=== PATIENT | male | born 1935 | race Caucasian/White ===

== ENCOUNTER 2019-08-09 20:03 | Emergency (ER) | payer MEDICARE, BC ==
[2019-08-09 20:53] VITALS: BP 150/66
[2019-08-09 22:24] VITALS: PULSE 87; RESP 20; TEMP 97
[2019-08-09 22:49] LABS: Basophils % (A) 0 %; Eosinophils % (A) 0 %; HCT 39.5 % (39.0-53.0); HGB 12.9 gm/dL (13.0-17.5); Lymphocytes # (A) 1.6 k/uL (1.0-4.8); Lymphocytes % (A) 18 %; MCHC 32.6 g/dL (31.0-37.0); MCV 91.8 fL (80.0-100.0); Mean Platelet Volume 10.4; Monocytes # (A) 0.9 k/uL (0-1.0); Monocytes % (A) 10 %; Neutrophils # (A) 6.4 k/uL (1.3-7.7); Neutrophils % (A) 69 %; Platelet Count 285 k/uL (150-450); RDW 13.1 % (11.5-15.5); WBC 9.3 k/uL (3.8-10.6)
[2019-08-09 22:54] LABS: Albumin 4.5 g/dL (3.5-5.0); Calcium 9.2 mg/dL (8.4-10.2); Potassium 4.2 mmol/L (3.5-5.1); Total Bilirubin 0.4 mg/dL (0.2-1.3); Total Protein 7.4 g/dL (6.3-8.2)
[2019-08-09 23:06] LABS: Partial Thromboplastin Time 26.6 sec (22.0-30.0); Prothrombin Time 10.8 sec (9.0-12.0)
--- NOTE | 2019-08-09 23:48 | ED ---
Recheck HPI - General Chief Complaint: Recheck/Abnormal Lab/Rx Stated Complaint: Sent by Time Seen by Provider: 08/09/19 21:58 Source: patient Mode of arrival: ambulatory Limitations: no limitations - History of Present Illness Initial Comments: 83-year-old male patient presents to the emergency department sent by his primary care physician after having an abnormal outpatient MRI. Patient has been having neuro symptoms for the last couple of weeks which included speech difficulties and tingling to the bilateral hands. Patient states that he'll h ave episodes lasting up to an hour where his words do not make sense. His physician is thinking he may be having TIAs or seizures. States that he had 3 episodes today they're lasting up to an hour so they did call his physician who ordered an outpatient MRI. MRI report was reviewed and showed 2 small lesions which are concerning for metastatic brain tumors. Patient denies any headache, blurred vision, double vision, nausea, vomiting, dizziness, or weakness. Denies any difficulties with gait. Patient states he does occasionally have flashing lights in his vision but has been going on for quite some time. Patient has had prostate cancer remotely and more recently a tumor removed from his bladder on 07/18/2019. Patient denies any recent rash, fever, chills, shortness breath, chest pain, abdominal pain, diarrhea, constipation, back pain, hematuria, dysuria, urinary urgency, urinary frequency, or any other complaints. Review of Systems ROS Statement: Those systems with pertinent positive or pertinent negative responses have been documented in the HPI. ROS Other: All systems not noted in ROS Statement are negative. Past Medical History Past Medical History: Atrial Fibrillation, Cancer, Diabetes Mellitus, Hypertension Past Surgical History: Prostate Surgery Additional Past Surgical History / Comment(s): bladder CA, brain tumor Smoking Status: Never smoker Past Alcohol Use History: Occasional Past Drug Use History: None Reported General Exam Limitations: no limitations General appearance: alert, in no apparent distress, other (This is a well- developed, well-nourished adult male patient in no acute distress. Vital signs upon presentation are temperature 98.2F, pulse 75, respirations 18, blood pressure 150/66, pulse ox 97% on room air.) Eye exam: Present: normal appearance, PERRL, EOMI. Absent: scleral icterus, conjunctival injection, nystagmus, periorbital swelling ENT exam: Present: normal exam, normal oropharynx, mucous membranes moist Respiratory exam: Present: normal lung sounds bilaterally. Absent: respiratory distress, wheezes, rales, rhonchi, stridor Cardiovascular Exam: Present: regular rate, normal rhythm, normal heart sounds. Absent: systolic murmur, diastolic murmur, rubs, gallop, clicks GI/Abdominal exam: Present: soft, normal bowel sounds. Absent: distended, tenderness, guarding, rebound, rigid Neurological exam: Present: alert, oriented X3, CN II-XII intact, normal gait (WITH a cane), other (Strength in all 4 extremities is 5/5) Psychiatric exam: Present: normal affect, normal mood Skin exam: Present: warm, dry, intact, normal color. Absent: rash Course Vital Signs 08/09/19 08/09/19 20:47 22:20 Temperature 98.2 F 97 F L Pulse Rate 75 87 Respiratory 18 20 Rate Blood Pressure 150/66 O2 Sat by Pulse 97 97 Oximetry Medical Decision Making - Medical Decision Making 83-year-old male patient presented to the emergency department today for evaluation after having an abnormal outpatient MRI. Patient has been having abnormal neurologic symptoms for the last 2 weeks which included speech difficulty and tingling to the bilateral hands. MRI today showed 2 lesions on the brain concerning for metastatic disease versus possible ischemic change. Patient did recently have a tumor removed from his bladder and was scheduled to have an additional surgery on Thursday to remove the remainder of the tumor. Upon evaluation patient's physical exam is unremarkable. He is currently neurologically intact with no focal deficits. He is in no distress. Vital signs have been satisfactory. EKG showed A. fib with a ventricular rate of 80, patient does take Xarelto for known afib. I did discuss the case with Dr. Andrews at [facility] to accepts transfer for further evaluation by neurosurgery. - Lab Data Result diagrams: 08/09/19 22:30 08/09/19 22:30 Lab Results 08/09/19 08/09/19 08/09/19 Range/Units 22:30 22:30 22:30 WBC 9.3 (3.8-10.6) k/uL RBC 4.30 (4.30-5.90) m/uL Hgb 12.9 L (13.0-17.5) gm/dL Hct 39.5 (39.0-53.0) % MCV 91.8 (80.0-100.0) fL MCH 30.0 (25.0-35.0) pg MCHC 32.6 (31.0-37.0) g/dL RDW 13.1 (11.5-15.5) % Plt Count 285 (150-450) k/uL Neutrophils % 69 % Lymphocytes % 18 % Monocytes % 10 % Eosinophils % 0 % Basophils % 0 % Neutrophils # 6.4 (1.3-7.7) k/uL Lymphocytes # 1.6 (1.0-4.8) k/uL Monocytes # 0.9 (0-1.0) k/uL Eosinophils # 0.0 (0-0.7) k/uL Basophils # 0.0 (0-0.2) k/uL PT 10.8 (9.0-12.0) sec INR 1.0 (<1.2) APTT 26.6 (22.0-30.0) sec Sodium 134 L (137-145) mmol/L Potassium 4.2 (3.5-5.1) mmol/L Chloride 101 (98-107) mmol/L Carbon Dioxide 21 L (22-30) mmol/L Anion Gap 12 mmol/L BUN 22 H (9-20) mg/dL Creatinine 0.92 (0.66-1.25) mg/dL Est GFR (CKD-EPI)AfAm 89 (>60 ml/min/1.73 sqM) Est GFR (CKD-EPI)NonAf 77 (>60 ml/min/1.73 sqM) Glucose 174 H (74-99) mg/dL Calcium 9.2 (8.4-10.2) mg/dL Total Bilirubin 0.4 (0.2-1.3) mg/dL AST 28 (17-59) U/L ALT 19 (4-49) U/L Alkaline Phosphatase 41 (38-126) U/L Troponin I (0.000-0.034) ng/mL Total Protein 7.4 (6.3-8.2) g/dL Albumin 4.5 (3.5-5.0) g/dL 08/09/19 Range/Units 22:30 WBC (3.8-10.6) k/uL RBC (4.30-5.90) m/uL Hgb (13.0-17.5) gm/dL Hct (39.0-53.0) % MCV (80.0-100.0) fL MCH (25.0-35.0) pg MCHC (31.0-37.0) g/dL RDW (11.5-15.5) % Plt Count (150-450) k/uL Neutrophils % % Lymphocytes % % Monocytes % % Eosinophils % % Basophils % % Neutrophils # (1.3-7.7) k/uL Lymphocytes # (1.0-4.8) k/uL Monocytes # (0-1.0) k/uL Eosinophils # (0-0.7) k/uL Basophils # (0-0.2) k/uL PT (9.0-12.0) sec INR (<1.2) APTT (22.0-30.0) sec Sodium (137-145) mmol/L Potassium (3.5-5.1) mmol/L Chloride (98-107) mmol/L Carbon Dioxide (22-30) mmol/L Anion Gap mmol/L BUN (9-20) mg/dL Creatinine (0.66-1.25) mg/dL Est GFR (CKD-EPI)AfAm (>60 ml/min/1.73 sqM) Est GFR (CKD-EPI)NonAf (>60 ml/min/1.73 sqM) Glucose (74-99) mg/dL Calcium (8.4-10.2) mg/dL Total Bilirubin (0.2-1.3) mg/dL AST (17-59) U/L ALT (4-49) U/L Alkaline Phosphatase (38-126) U/L Troponin I <0.012 (0.000-0.034) ng/mL Total Protein (6.3-8.2) g/dL Albumin (3.5-5.0) g/dL - EKG Data -: EKG Interpreted by Me EKG Comments: EKG obtained at 2334 shows A. fib with ventricular rate of 80, QR shinto 118, QT 404, QTC 465. There is incomplete right bundle branch block. - Radiology Data Radiology results: report reviewed MR brain with and without contrast was obtained. Report reviewed in its entirety. Impression by Dr. Shogren shows appears to be a ring enhancing lesion within the left frontal parietal region as well as some enhancement along the left abdomen injury suspicious for metastatic disease. Focal white matter change in the left centrum semiovale posteriorly appears more likely related to ischemic change although very tiny nonenhancing metastasis could be considered. Chronic appearing white matter changes diffusely. Watershed infarct right occipital region. Carotid Doppler study done outpatient today as well showed no hemodynamically significant proximal ICA stenosis on either side. Elevated velocity within the distal right ICA felt to be secondary to turbulent flow from vessel tortuosity rather than from moderate stenosis. CTA can be considered to further evaluation as desired. Disposition Clinical Impression: Brain tumor, TIA (transient ischemic attack) Disposition: OTHER INSTITUTION NOT DEFINED Condition: Serious Referrals: Roscoe Dykes MD [Primary Care Provider] - 1-2 days - Out of Hospital Transfer - Req. Specs Out of Hospital Transfer - Requested Specifics: Other Emergency Center ([facility])
== END 2019-08-10 00:40 | disposition other institution (70) ==
LOC: EC 20:03
DX: G45.9 Transient cerebral ischemic attack, unspecified (principal); D49.6 Neoplasm of unspecified behavior of brain; I48.91 Unspecified atrial fibrillation; Z79.01 Long term (current) use of anticoagulants; Z85.46 Personal history of malignant neoplasm of prostate; Z98.890 Other specified postprocedural states; Z85.51 Personal history of malignant neoplasm of bladder
CPT/HCPCS: 36415; 80053; 84484; 85025; 85610; 85730; 93005; 99285

== ENCOUNTER → 2019-08-09 | Outpatient (CLI) | payer MEDICARE, BC ==
--- NOTE | 2019-08-09 15:54 | MR ---
EXAMINATION TYPE: MR brain wo/w con DATE OF EXAM: 08/09/2019 COMPARISON: None HISTORY: Stroke weakness CONTRAST: Performed utilizing 9 mL intravenous Gadavist gadolinium contrast. TECHNIQUE: Multiplanar, multiecho imaging on a 3.0 Tanya magnet is performed through the brain. Stud y is performed within 24 hours of arrival to the hospital. The craniovertebral junction is normal. The pituitary is normal. Diffusion-weighted imaging is performed. There is some mild cortical increased signal within the lef t frontal lobe. Greater hyperintensity is present extending into the white matter at the same level o n the FLAIR images. On postcontrast imaging there is a 0.7 x 1.0 cm ring-enhancing lesion as well as enhancement along the leptomeninges. Metastatic lesion is suspected. There is an additional punctate area of hyperintensity within the posterior left centrum semiovale wh ich is slightly smaller than the hyperintensity on the inversion recovery weighted sequence in this r egion. Series 305 image 176. Acute ischemic change at this level is present. No abnormal enhancement to suggest metastatic disease is identified. However, this is not entirely excluded at this level. There are multiple areas of increased white matter change scattered throughout the brain. There may b e an old watershed ischemic change in the right parietal-occipital region. Ventricles and sulci are prominent for the patient age. There is enhancement along the suspected ischemic area of the cortex which could be some luxury perfu selwyn. IMPRESSIONS: 1. There appears to be a ring-enhancing lesion within the left frontal parietal region as well as verónica e enhancement along the leptomeninges suspicious for metastatic disease. 2. Focal white matter change in the left centrum semiovale posteriorly appears more likely related to ischemic change although a very tiny nonenhancing metastasis could be considered. 3. Chronic appearing White matter changes diffusely. 4. Watershed infarct right occipital region A Yellow level critical message alert has been initiated for Roscoe Dykes MD via the [employer] Critical Results System on 08/09/2019 3:51 PM. This message alert has been sent to Roscoe Dykes MD via the preferences provided by the clinician for the receipt of Radiology Critical Findings. Message ID [id number].
== END | disposition home or self-care (01) ==
LOC: RADMRIMAIN 14:26
PROVIDERS: ATTEND Internal Medicine Geriatric Medicine
DX: G93.89 Other specified disorders of brain (principal); I63.89 Other cerebral infarction; R90.89 Other abnormal findings on diagnostic imaging of central nervous system
CPT/HCPCS: 70553; A9585

== ENCOUNTER → 2019-08-09 | Outpatient (CLI) | payer MEDICARE, BC ==
--- NOTE | 2019-08-09 15:42 | US ---
EXAMINATION TYPE: US carotid duplex BILAT DATE OF EXAM: 08/09/2019 COMPARISON: NONE CLINICAL HISTORY: 83-year-old male I63.9 STROKE. TECHNIQUE: Carotid duplex ultrasound examination. Indirect Doppler criteria was utilized. FINDINGS: EXAM MEASUREMENTS: RIGHT: Peak Systolic Velocity (PSV) cm/sec ----- Right CCA: 59.8 ----- Right ICA: 52.8 (distally 161.7 cm/s) ----- Right ECA: 110.8 ICA/CCA ratio: 0.9 RIGHT: End Diastole cm/sec ----- Right CCA: 11.9 ----- Right ICA: 15.4 (distally 50.2 cm/s) ----- Right ECA: 12.4 LEFT: Peak Systolic Velocity (PSV) cm/sec ----- Left CCA: 82.8 ----- Left ICA: 111.7 ----- Left ECA: 60.2 ICA/CCA ratio: 1.3 LEFT: End Diastole cm/sec ----- Left CCA: 10.1 ----- Left ICA: 39.1 ----- Left ECA: 0.0 VERTEBRALS (direction of flow): Right Vertebral: Antegrade Left Vertebral: Antegrade Rhythm: Arrhythmia Tool Chaser notes: No significant stenosis identified. Elevated distal ICA velocity on the right is f elt to reflect tortuosity. Mild bilateral plaque seen. IMPRESSION: 1. No hemodynamically significant proximal ICA stenosis on either side. 2. Elevated velocity within the distal right ICA felt to be secondary to turbulent flow from vessel t ortuosity rather than from a moderate stenosis. CTA can be considered if further evaluation is desire d. Criteria for Assigning % of Stenosis / Diameter reduction (Estimation based on the indirect measurements of the internal carotid artery velocities (ICA PSV). 1. Normal (no stenosis)=ICA PSV < 125 cm/s: ratio < 2.0: ICA EDV<40 cm/s. 2. Less than 50% stenosis=ICA PSV < 125 cm/s: ratio < 2.0: ICA EDV<40 cm/s. 3. 50 to 69% stenosis=ICA PSV of 125 to 230 cm/s: ration 2.0 ? 4.0: ICA EDV 40-100 cm/s. 4. Greater than 70% stenosis to near occlusion= ICA PSV > 230 cm/s: ratio > 4.0: ICA EDV > 100 cm/s. 5. Near occlusion= ICA PSV velocities may be low or undetectable: variable ratio and ICA EDV. 6. Total occlusion=unable to detect flow.
== END | disposition home or self-care (01) ==
LOC: RADUSWWP 13:56
PROVIDERS: ATTEND Internal Medicine Geriatric Medicine
DX: I65.23 Occlusion and stenosis of bilateral carotid arteries (principal)
CPT/HCPCS: 93880

== ENCOUNTER 2019-09-05 14:51 | Observation (INO) | payer MEDICARE, BC ==
[2019-09-05] MEDS ORDERED: NITROGLYCERIN OINT 1 INCH/GM PACKET TOPICAL STA (15:19)
[2019-09-05] MEDS ORDERED: ASPIRIN 81 MG PO STA (15:19)
--- NOTE | 2019-09-05 15:24 | ED ---
General Adult HPI - General Chief complaint: Chest Pain Stated complaint: chest pain Time Seen by Provider: 09/05/19 15:05 Source: patient, family, RN notes reviewed Mode of arrival: ambulatory Limitations: no limitations - History of Present Illness Initial comments: Patient is a pleasant 83-year-old male presenting to the emergency Department with complaints of chest discomfort. Onset of symptoms was a couple of days ago. Symptoms have been waxing and waning. Discomfort is currently 5/10. Discomfort feels like tightness and there is radiation to the back. Patient does have occasional mild dyspnea with exertion. No nausea or diaphoresis. No leg pain or leg swelling. No history of similar symptoms. Patient does have history of atrial fibrillation and is on Eliquis. Discomfort feels like pressure. - Related Data Home Medications Medication Instructions Recorded Confirmed Apixaban [Eliquis] 5 mg PO BID 09/05/19 09/05/19 Atorvastatin [Lipitor] 80 mg PO HS 09/05/19 09/05/19 Bicalutamide 50 mg PO HS 09/05/19 09/05/19 Cholecalciferol [Vitamin D3 (25 1,000 unit PO DAILY 09/05/19 09/05/19 Mcg = 1000 Iu)] Lisinopril [Prinivil] 5 mg PO DAILY 09/05/19 09/05/19 Vitamin B Complex 1 cap PO DAILY 09/05/19 09/05/19 metFORMIN HCL [Glucophage] 500 mg PO HS 09/05/19 09/05/19 Allergies Allergy/AdvReac Type Severity Reaction Status Date / Time No Known Allergies Allergy Verified 09/05/19 15:58 Review of Systems ROS Statement: Those systems with pertinent positive or pertinent negative responses have been documented in the HPI. ROS Other: All systems not noted in ROS Statement are negative. Constitutional: Denies: fever Eyes: Denies: eye pain ENT: Denies: ear pain Respiratory: Reports: as per HPI. Denies: cough Cardiovascular: Reports: chest pain Endocrine: Denies: fatigue Gastrointestinal: Denies: abdominal pain Genitourinary: Denies: dysuria Musculoskeletal: Denies: back pain Skin: Denies: rash Neurological: Denies: headache Past Medical History Past Medical History: Atrial Fibrillation, Cancer, Diabetes Mellitus, Hypertension Past Surgical History: Prostate Surgery Additional Past Surgical History / Comment(s): bladder CA, brain tumor Smoking Status: Never smoker Past Alcohol Use History: Occasional Past Drug Use History: None Reported General Exam Limitations: no limitations General appearance: alert, in no apparent distress Head exam: Present: normocephalic Eye exam: Present: normal appearance, PERRL ENT exam: Present: normal oropharynx Neck exam: Present: normal inspection Respiratory exam: Present: normal lung sounds bilaterally Cardiovascular Exam: Present: regular rate, irregular rhythm Expanded Peripheral pulses: 2+: Radial (R), Radial (L), Dorsalis Pedis (R), Dorsalis Pedis (L) GI/Abdominal exam: Present: soft. Absent: tenderness Extremities exam: Present: normal inspection. Absent: pedal edema, calf tenderness Back exam: Present: normal inspection. Absent: tenderness Neurological exam: Present: alert Psychiatric exam: Present: normal affect, normal mood Skin exam: Present: normal color Course Vital Signs 09/05/19 14:58 Temperature 98.0 F Pulse Rate 65 Respiratory 20 Rate Blood Pressure 135/74 O2 Sat by Pulse 93 L Oximetry EKG Findings - EKG Comments: EKG Findings:: A. fib with rate of 66. QRS 118. QT 424. QTC 444. Left axis. Normal QRS. Nonspecific T waves. Medical Decision Making - Medical Decision Making Patient reevaluated and resting comfortably at bedside. No significant discomfort at this time. Patient and family updated on results and plan. Patient states he did have recent heart catheterization, just over a month ago and coronary arteries were clean at that time. Case was discussed in detail with Dr. Dennis, who will admit covering for Dr. Dykes. Patient is currently on Eliquis - Lab Data Result diagrams: 09/05/19 15:30 09/05/19 15:30 Lab Results 09/05/19 09/05/19 09/05/19 Range/Units 15:30 15:30 15:30 WBC 8.0 (3.8-10.6) k/uL RBC 4.09 L (4.30-5.90) m/uL Hgb 12.5 L (13.0-17.5) gm/dL Hct 37.5 L (39.0-53.0) % MCV 91.8 (80.0-100.0) fL MCH 30.5 (25.0-35.0) pg MCHC 33.2 (31.0-37.0) g/dL RDW 13.1 (11.5-15.5) % Plt Count 255 (150-450) k/uL Neutrophils % 71 % Lymphocytes % 17 % Monocytes % 9 % Eosinophils % 1 % Basophils % 0 % Neutrophils # 5.7 (1.3-7.7) k/uL Lymphocytes # 1.3 (1.0-4.8) k/uL Monocytes # 0.7 (0-1.0) k/uL Eosinophils # 0.1 (0-0.7) k/uL Basophils # 0.0 (0-0.2) k/uL PT 11.4 (9.0-12.0) sec INR 1.1 (<1.2) APTT 28.2 (22.0-30.0) sec D-Dimer 0.53 (<0.60) mg/L FEU Sodium 135 L (137-145) mmol/L Potassium 4.2 (3.5-5.1) mmol/L Chloride 101 (98-107) mmol/L Carbon Dioxide 26 (22-30) mmol/L Anion Gap 8 mmol/L BUN 21 H (9-20) mg/dL Creatinine 1.12 (0.66-1.25) mg/dL Est GFR (CKD-EPI)AfAm 71 (>60 ml/min/1.73 sqM) Est GFR (CKD-EPI)NonAf 61 (>60 ml/min/1.73 sqM) Glucose 151 H (74-99) mg/dL Calcium 9.1 (8.4-10.2) mg/dL Magnesium 1.7 (1.6-2.3) mg/dL Total Bilirubin 0.4 (0.2-1.3) mg/dL AST 35 (17-59) U/L ALT 28 (4-49) U/L Alkaline Phosphatase 42 (38-126) U/L Creatine Kinase 83 (55-170) U/L CK-MB (CK-2) (0.0-2.4) ng/mL Troponin I (0.000-0.034) ng/mL NT-Pro-B Natriuret Pep pg/mL Total Protein 7.0 (6.3-8.2) g/dL Albumin 4.3 (3.5-5.0) g/dL 09/05/19 09/05/19 Range/Units 15:30 15:30 WBC (3.8-10.6) k/uL RBC (4.30-5.90) m/uL Hgb (13.0-17.5) gm/dL Hct (39.0-53.0) % MCV (80.0-100.0) fL MCH (25.0-35.0) pg MCHC (31.0-37.0) g/dL RDW (11.5-15.5) % Plt Count (150-450) k/uL Neutrophils % % Lymphocytes % % Monocytes % % Eosinophils % % Basophils % % Neutrophils # (1.3-7.7) k/uL Lymphocytes # (1.0-4.8) k/uL Monocytes # (0-1.0) k/uL Eosinophils # (0-0.7) k/uL Basophils # (0-0.2) k/uL PT (9.0-12.0) sec INR (<1.2) APTT (22.0-30.0) sec D-Dimer (<0.60) mg/L FEU Sodium (137-145) mmol/L Potassium (3.5-5.1) mmol/L Chloride (98-107) mmol/L Carbon Dioxide (22-30) mmol/L Anion Gap mmol/L BUN (9-20) mg/dL Creatinine (0.66-1.25) mg/dL Est GFR (CKD-EPI)AfAm (>60 ml/min/1.73 sqM) Est GFR (CKD-EPI)NonAf (>60 ml/min/1.73 sqM) Glucose (74-99) mg/dL Calcium (8.4-10.2) mg/dL Magnesium (1.6-2.3) mg/dL Total Bilirubin (0.2-1.3) mg/dL AST (17-59) U/L ALT (4-49) U/L Alkaline Phosphatase (38-126) U/L Creatine Kinase (55-170) U/L CK-MB (CK-2) 2.3 (0.0-2.4) ng/mL Troponin I 0.132 H* (0.000-0.034) ng/mL NT-Pro-B Natriuret Pep 1720 pg/mL Total Protein (6.3-8.2) g/dL Albumin (3.5-5.0) g/dL - Radiology Data Radiology results: image reviewed (Chest x-ray shows no acute process) Critical Care Time Critical Care Time: Yes Total Critical Care Time: 31 Disposition Clinical Impression: Chest pain Disposition: ADMITTED IP TO THIS HOSP Is patient prescribed a controlled substance at d/c from ED?: No Referrals: Roscoe Dykes MD [Primary Care Provider] - 1-2 days Decision Time: 16:42
[2019-09-05 15:41] LABS: Basophils % (A) 0 %; Eosinophils # (A) 0.1 k/uL (0-0.7); Eosinophils % (A) 1 %; HCT 37.5 % (39.0-53.0); HGB 12.5 gm/dL (13.0-17.5); Lymphocytes # (A) 1.3 k/uL (1.0-4.8); Lymphocytes % (A) 17 %; MCH 30.5 pg (25.0-35.0); MCHC 33.2 g/dL (31.0-37.0); MCV 91.8 fL (80.0-100.0); Mean Platelet Volume 9.9; Monocytes # (A) 0.7 k/uL (0-1.0); Monocytes % (A) 9 %; Neutrophils # (A) 5.7 k/uL (1.3-7.7); Neutrophils % (A) 71 %; Platelet Count 255 k/uL (150-450); RBC 4.09 m/uL (4.30-5.90); RDW 13.1 % (11.5-15.5)
--- NOTE | 2019-09-05 15:47 | XR ---
EXAMINATION TYPE: XR chest 2V DATE OF EXAM: 09/05/2019 COMPARISON: NONE HISTORY: Chest pain TECHNIQUE: Frontal and lateral views of the chest are obtained. FINDINGS: There is no focal air space opacity, pleural effusion, or pneumothorax seen. The cardiac silhouette size is within normal limits. The aorta is dense. Thoracic spondylosis is present. The os seous structures are intact. IMPRESSION: No acute cardiopulmonary process.
[2019-09-05 15:53] LABS: Albumin 4.3 g/dL (3.5-5.0)
[2019-09-05 15:54] LABS: Calcium 9.1 mg/dL (8.4-10.2); Magnesium 1.7 mg/dL (1.6-2.3); Potassium 4.2 mmol/L (3.5-5.1); Total Bilirubin 0.4 mg/dL (0.2-1.3)
[2019-09-05 15:58] LABS: D-Dimer 0.53 mg/L FEU (<0.60); INR 1.1 (<1.2); Partial Thromboplastin Time 28.2 sec (22.0-30.0); Prothrombin Time 11.4 sec (9.0-12.0)
[2019-09-05 16:12] LABS: Creatine Kinase MB 2.3 ng/mL (0.0-2.4)
[2019-09-05 16:24] LABS: Troponin I 0.132 ng/mL (0.000-0.034)
[2019-09-05] MEDS ORDERED: NITROGLYCERIN SL TABS 0.4 MG TAB SUBLINGUAL PRN (16:42)
[2019-09-05] MEDS: APIXABAN 5 MG TAB PO SCH (21:03)
[2019-09-05] MEDS: metFORMIN 500 MG TAB PO SCH (21:03)
[2019-09-05] MEDS: ATORVASTATIN 80 MG TAB PO SCH (21:03)
[2019-09-05] MEDS: BICALUTAMIDE 50 MG TAB PO SCH (21:04)
[2019-09-05] MEDS: NITROGLYCERIN OINT 1 INCH/GM PACKET TOPICAL SCH ×2 (21:04→23:30)
[2019-09-06 05:16] LABS: Cholesterol 117 mg/dL (<200); HDL Cholesterol 64 mg/dL (40-60); LDL Cholesterol,Calculated 44 mg/dL (0-99); Triglycerides 43 mg/dL (<150)
[2019-09-06 06:15] LABS: Glucose,Whole Blood 131 mg/dL (75-99)
[2019-09-06] MEDS: NITROGLYCERIN OINT 1 INCH/GM PACKET TOPICAL SCH (06:16)
--- NOTE | 2019-09-06 08:27 | P.CRDCN ---
History of Present Illness Consult date: 09/06/19 Requesting physician: James Richards Consult reason: chest pain Chief complaint: Chest pain History of present illness: This is a pleasant 83-year-old gentleman who follows regularly with Dr. Nona Voss in the office. He has a history of persistent atrial fibrillation, prostate cancer, bladder cancer, patient underwent tumor removal in the bladder in July of this year, diabetes, hypertension, hyperlipidemia, patient also had suspicion of a possible brain tumor on a presentation here to the emergency room recently, he was transferred from here to [facility], he had a full workup there according to the patient, also had a repeat MRI and was told by the physician there did not have any issues or tumors of the brain. Patient also states that he underwent a cardiac catheterization by Dr. Nona Voss in July at [facility] and was told his cardiac catheterization time was normal. He presents to the hospital on this occasion with symptoms of midsternal chest pressure that radiates through to his back, he states that he has had 2 other episodes prior to the one that brought him here to the hospital. The symptoms come and go according to him. He does get some mild associated shortness of breath with this, no nausea or diaphoresis. He called cardiology's office yesterday to explain his symptoms of chest discomfort and was advised to come to the emergency room for further evaluation and treatment. His chest x- ray on presentation here did not reveal any acute cardiopulmonary process. EKG shows atrial fibrillation with a controlled ventricular response, nonspecific ST-T wave changes noted in the anterior and lateral leads. Blood pressure on arrival here 134/74 with a heart rate in the 60s, 93% on room air. Temperature 90.8. White blood cell count 8.0, hemoglobin 12.5, platelet count 255. D-dimer 0.5. Sodium 135, potassium 4.2, BUN 21, creatinine 1.1. Troponin 0.13, 0.20, 0.15. Magnesium 1.7. BNP level 1720. At the time of my examination this morning, patient is comfortable, he denies any chest discomfort at present. Past Medical History Past Medical History: Atrial Fibrillation, Cancer, Diabetes Mellitus, Hypertension Additional Past Medical History / Comment(s): prostate cancer, bladder cancer, bladder tumor removed 07/2019 History of Any Multi-Drug Resistant Organisms: None Reported Past Surgical History: Prostate Surgery Additional Past Surgical History / Comment(s): bladder CA, brain tumor Past Anesthesia/Blood Transfusion Reactions: No Reported Reaction Past Psychological History: No Psychological Hx Reported Smoking Status: Never smoker Past Alcohol Use History: Occasional Past Drug Use History: None Reported - Past Family History Father Family Medical History: Unable to Obtain Mother Family Medical History: No Reported History Medications and Allergies Home Medications Medication Instructions Recorded Confirmed Type Apixaban [Eliquis] 5 mg PO BID 09/05/19 09/05/19 History Atorvastatin [Lipitor] 80 mg PO HS 09/05/19 09/05/19 History Bicalutamide 50 mg PO HS 09/05/19 09/05/19 History Cholecalciferol [Vitamin D3 (25 1,000 unit PO DAILY 09/05/19 09/05/19 History Mcg = 1000 Iu)] Lisinopril [Prinivil] 5 mg PO DAILY 09/05/19 09/05/19 History Vitamin B Complex 1 cap PO DAILY 09/05/19 09/05/19 History metFORMIN HCL [Glucophage] 500 mg PO HS 09/05/19 09/05/19 History Allergies Allergy/AdvReac Type Severity Reaction Status Date / Time No Known Allergies Allergy Verified 09/05/19 15:58 Physical Exam Vitals: Vital Signs Temp Pulse Pulse Resp BP BP Pulse Ox 09/06/19 04:00 97.9 F 61 16 117/61 97 09/05/19 23:49 98.3 F 75 16 146/70 99 09/05/19 22:08 98.1 F 65 16 129/76 98 09/05/19 19:18 98.2 F 72 18 139/79 98 09/05/19 17:13 98.4 F 63 17 129/90 98 09/05/19 14:58 98.0 F 65 20 135/74 93 L Intake and Output 09/05/19 09/06/19 09/06/19 22:59 06:59 14:59 Intake Total 150 Balance 150 Intake: Oral 150 Other: Voiding Method Toilet # Voids 1 3 Weight 88.904 kg 88.9 kg PHYSICAL EXAMINATION: GENERAL: 83-year-old gentleman in no acute distress at the time of my examination HEENT: Head is atraumatic, normocephalic. Pupils equal, round. Sclera anicteric. Conjunctiva are clear. Mucous membranes of the mouth are moist. Neck is supple. There is no elevated jugular venous pressure. No carotid bruit is heard. HEART EXAMINATION: S1 and S2 irregularly irregular CHEST EXAMINATION: Lungs are clear to auscultation and precussion. No chest wall tenderness is noted on palpation or with deep breathing. ABDOMEN: Soft, nontender. Bowel sounds are heard. No organomegaly noted. EXTREMITIES: 2+ peripheral pulses with no evidence of peripheral edema and no ca lf tenderness noted. NEUROLOGIC patient is awake, alert and oriented 3 . . Results 09/05/19 15:30 09/05/19 15:30 Cardiac Enzymes 09/05/19 09/05/19 09/05/19 Range/Units 15:30 15: 22:01 AST 35 (17-59) U/L CK-MB (CK-2) 2.3 (0.0-2.4) ng/mL Troponin I 0.132 H* 0.202 H* (0.000-0.034) ng/mL 09/06/19 Range/Units 04:42 AST (17-59) U/L CK-MB (CK-2) (0.0-2.4) ng/mL Troponin I 0.154 H* (0.000-0.034) ng/mL Coagulation 09/05/19 Range/Units 15:30 PT 11.4 (9.0-12.0) sec APTT 28.2 (22.0-30.0) sec Lipids 09/06/19 Range/Units 04:42 Triglycerides 43 (<150) mg/dL Cholesterol 117 (<200) mg/dL HDL Cholesterol 64 H (40-60) mg/dL CBC 09/05/19 Range/Units 15:30 WBC 8.0 (3.8-10.6) k/uL RBC 4.09 L (4.30-5.90) m/uL Hgb 12.5 L (13.0-17.5) gm/dL Hct 37.5 L (39.0-53.0) % Plt Count 255 (150-450) k/uL Comprehensive Metabolic Panel 09/05/19 Range/Units 15:30 Sodium 135 L (137-145) mmol/L Potassium 4.2 (3.5-5.1) mmol/L Chloride 101 (98-107) mmol/L Carbon Dioxide 26 (22-30) mmol/L BUN 21 H (9-20) mg/dL Creatinine 1.12 (0.66-1.25) mg/dL Glucose 151 H (74-99) mg/dL Calcium 9.1 (8.4-10.2) mg/dL AST 35 (17-59) U/L ALT 28 (4-49) U/L Alkaline Phosphatase 42 (38-126) U/L Total Protein 7.0 (6.3-8.2) g/dL Albumin 4.3 (3.5-5.0) g/dL Current Medications Generic Name Dose Route Start Last Admin Trade Name Freq PRN Reason Stop Dose Admin Apixaban 5 mg 09/05/19 21:00 09/05/19 21:03 Eliquis PO 5 mg BID [facility] Administration Aspirin 325 mg 09/06/19 09:00 Aspirin PO DAILY [facility] Atorvastatin Calcium 80 mg 09/05/19 21:00 09/05/19 21:03 Lipitor PO 80 mg HS [facility] Administration Bicalutamide 50 mg 09/05/19 21:00 09/05/19 21:04 Casodex PO 50 mg HS [facility] Administration Lisinopril 5 mg 09/06/19 09:00 Zestril PO DAILY [facility] Metformin HCl 500 mg 09/05/19 21:00 09/05/19 21:03 Glucophage PO 500 mg HS [facility] Administration Nitroglycerin 0.4 mg 09/05/19 16:42 Nitrostat SUBLINGUAL Q5M PRN Chest Pain Nitroglycerin 1 inch 09/05/19 21:00 09/06/19 06:16 Nitro-Bid Oint TOPICAL 1 inch Q6HR [facility] Administration Sodium Chloride 10 ml 09/05/19 21:00 09/05/19 21:08 Saline Flush IV 10 ml BID [facility] Administration Intake and Output 09/05/19 09/06/19 09/06/19 22:59 06:59 14:59 Intake Total 150 Balance 150 Intake: Oral 150 Other: Voiding Method Toilet # Voids 1 3 Weight 88.904 kg 88.9 kg 09/05/19 15:30 09/05/19 15:30 EKG Interpretations (text) EKG shows atrial fibrillation with ST-T wave changes noted in the anterior and lateral leads. Assessment and Plan Plan: Assessment and plan #1 symptoms of midsternal chest pressure with radiation to the back, associated shortness of breath, possible acute coronary syndrome. Troponin 0.13, 0.20, 0.14. EKG shows atrial fibrillation with ST-T changes noted in the anterior lateral leads. Patient does state that he underwent a cardiac catheterization in July of this year, which was reported to him to be normal. We will obtain a copy of that. D-dimer negative. #2 chronic persistent atrial fibrillation on Eliquis for anticoagulation, rate under adequate control #3 hypertension #4 hyperlipidemia #5 diabetes #6 bladder cancer with recent tumor removal #7 prostate cancer history #8 suspicion of possible tumor on the brain for which the patient was tra nsferred to [facility], according to the patient the repeat MRI and workup at [facility] was negative for tumor on the brain. Plan We will obtain an echocardiogram with Doppler study as well as a repeat EKG this morning. Obtain a cardiac catheterization report from [facility], and initiate low-dose beta rosas. Further recommendations to follow. DNP note has been reviewed, I agree with a documented findings and plan of care. Patient was seen and examined.
[2019-09-06] MEDS: LISINOPRIL 5 MG TAB PO SCH (08:43)
[2019-09-06] MEDS: APIXABAN 5 MG TAB PO SCH ×2 (08:43→20:49)
[2019-09-06] MEDS ORDERED: ASPIRIN 325 MG TAB PO SCH (09:00)
--- NOTE | 2019-09-06 09:37 | ECHOF ---
Referral Reason:cp MEASUREMENTS -------- HEIGHT: 182.9 cm WEIGHT: 88.5 kg BP: RVIDd: 3.1 cm (< 3.3) IVSd: 1.4 cm (0.6 - 1.1) LVIDd: 4.6 cm (3.9 - 5.3) LVPWd: 1.6 cm (0.6 - 1.1) IVSs: 1.6 cm LVIDs: 3.8 cm LVPWs: 1.7 cm LA Diam: 4.3 cm (2.7 - 3.8) LAESV Index (A-L): 26.67 ml/m Ao Diam: 4.1 cm (2.0 - 3.7) AV Cusp: 2.0 cm (1.5 - 2.6) MV EXCURSION: 19.436 mm (> 18.000) MV EF SLOPE: 146 mm/s (70 - 150) EPSS: 0.5 cm MV E Ayden: 0.73 m/s MV DecT: 189 ms MV A Ayden: 0.19 m/s MV E/A Ratio: 3.93 RAP: 5.00 mmHg RVSP: 20.64 mmHg FINDINGS -------- Atrial fibrillation. This was a technically adequate study. The left ventricular size is normal. Overall left ventricular systolic function is low-normal with, an EF between 50 - 55 %. The right ventricle is normal in size. The left atrium is mildly dilated. LA is midly dilated 29-33ml/m2. The right atrial size is normal. There is mild aortic valve sclerosis. Trace to mild aortic regurgitation. Mild mitral annular calcification present. Mild mitral regurgitation is present. Mild tricuspid regurgitation present. Right ventricular systolic pressure is normal at < 35 mmHg. There is no evidence of pulmonary hypertension. Trace/mild (physiologic) pulmonic regurgitation. The aortic root size is normal. There is no pericardial effusion. CONCLUSIONS -------- 1. Atrial fibrillation. 2. This was a technically adequate study. 3. The left ventricular size is normal. 4. Overall left ventricular systolic function is low-normal with, an EF between 50 - 55 %. 5. The right ventricle is normal in size. 6. The left atrium is mildly dilated. 7. LA is midly dilated 29-33ml/m2. 8. The right atrial size is normal. 9. There is mild aortic valve sclerosis. 10. Trace to mild aortic regurgitation. 11. Mild mitral annular calcification present. 12. Mild mitral regurgitation is present. 13. Mild tricuspid regurgitation present. 14. Right ventricular systolic pressure is normal at < 35 mmHg. 15. There is no evidence of pulmonary hypertension. 16. Trace/mild (physiologic) pulmonic regurgitation. 17. The aortic root size is normal. 18. There is no pericardial effusion. IN STORE MARKETER: Anjelica Lane RDCS
[2019-09-06] MEDS: ISOSORBIDE MONONITRATE ER 30 MG TAB.ER.24H PO SCH (11:19)
[2019-09-06] MEDS: CLOPIDOGREL 75 MG TAB PO SCH (11:19)
[2019-09-06 12:02] LABS: Glucose,Whole Blood 116 mg/dL (75-99)
[2019-09-06] MEDS: INSULIN ASPART (NovoLOG) 100 UNIT/ML VIAL SQ SCH ×3 (12:13→20:36)
--- NOTE | 2019-09-06 14:05 | P.HPIM ---
History of Present Illness H&P Date: 09/06/19 Chief Complaint: Chest pain This is an 83-year-old male patient of Dr. Dykes and Dr. HEATH Voss with past medical history of persistent atrial fibrillation on eliquis, prostate cancer, bladder cancer, patient underwent tumor removal in the bladder in July of this year, diabetes mellitus type II, hypertension, hyperlipidemia, patient also had suspicion of a possible brain tumor. Patient complains of chest pain in the middle of his chest up into his back that was a pressure type pain. He denies any radiation to his arm or neck. He denies any dizziness. Th is started about he was watching TV. He denies cough, shortness of breath. He denies any abdominal pain, no gastric reflux. He denies any weakness or speech difficulties. He denies any lower extremity edema. He does state that he has been constipated lately. Patient had a recent hospitalization [facility] at [facility] which time he presented with chest pain, status post heart catheterization which apparently was negative for coronary artery disease. Patient came into [facility] emergency center for evaluation. Blood pressure 134/74, heart rate in the 60s, pulse ox 93% on room air, afebrile. WBC 8, hemoglobin 12.5, platelet count 255. D-dimer 0.5, sodium 135, potassium 4.2, BUN 21, creatinine 1.1. Troponin 0.13, 0.20, 0.15. Magnesium 1.7. BNP level 1720. Chest x-ray showed no acute cardio pulmonary findings. Patient was placed on the cardiac stepdown unit and consult with cardiology requested. Echocardiogram has been ordered. Review of Systems Constitutional: Denies anorexia, Denies chills, Denies fatigue, Denies fever, Denies lethargy, Denies malaise, Denies poor appetite, Denies weakness Eyes: denies blurred vision, denies pain Ears, nose, mouth and throat: Denies dental pain, Denies headache, Denies nasal congestion, Denies nasal discharge, Denies sore throat, Denies vertigo Cardiovascular: Reports chest pain, Denies decreased exercise tolerance, Denies dyspnea on exertion, Denies leg edema, Denies lightheadedness, Denies shortness of breath, Denies syncope Respiratory: Denies congestion, Denies cough, Denies cough with sputum, Denies dyspnea, Denies excessive sputum, Denies home oxygen, Denies respiratory infections, Denies sleep apnea, Denies wheezing Gastrointestinal: Reports constipation, Denies abdominal pain, Denies diarrhea, Denies loss of appetite, Denies nausea, Denies vomiting Genitourinary: Denies dysuria, Denies urinary frequency, Denies urinary retention Musculoskeletal: Denies muscle weakness, Denies myalgias Integumentary: Denies pruritus, Denies rash, Denies wounds Neurological: Denies change in mentation, Denies change in speech, Denies numbness, Denies weakness Psychiatric: Denies anxiety, Denies depression Endocrine: Denies fatigue, Denies weight change Past Medical History Past Medical History: Atrial Fibrillation, Cancer, Diabetes Mellitus, Hypertension Additional Past Medical History / Comment(s): prostate cancer, bladder cancer, bladder tumor removed 07/2019 History of Any Multi-Drug Resistant Organisms: None Reported Past Surgical History: Prostate Surgery Additional Past Surgical History / Comment(s): bladder CA, brain tumor Past Anesthesia/Blood Transfusion Reactions: No Reported Reaction Past Psychological History: No Psychological Hx Reported Smoking Status: Never smoker Past Alcohol Use History: Occasional Past Drug Use History: None Reported - Past Family History Father Family Medical History: Unable to Obtain Additional Family Medical History / Comment(s): Father at age 93 from old age. Mother Family Medical History: Diabetes Mellitus Sister(s) Additional Family Medical History / Comment(s): Patient has one sister that is living with no major medical problems. Medications and Allergies Home Medications Medication Instructions Recorded Confirmed Type Apixaban [Eliquis] 5 mg PO BID 09/05/19 09/05/19 History Atorvastatin [Lipitor] 80 mg PO HS 09/05/19 09/05/19 History Bicalutamide 50 mg PO HS 09/05/19 09/05/19 History Cholecalciferol [Vitamin D3 (25 1,000 unit PO DAILY 09/05/19 09/05/19 History Mcg = 1000 Iu)] Lisinopril [Prinivil] 5 mg PO DAILY 09/05/19 09/05/19 History Vitamin B Complex 1 cap PO DAILY 09/05/19 09/05/19 History metFORMIN HCL [Glucophage] 500 mg PO HS 09/05/19 09/05/19 History Clopidogrel [Plavix] 75 mg PO DAILY #30 tab 09/07/19 Rx Famotidine [Pepcid] 20 mg PO DAILY tab 09/07/19 Rx Isosorbide Mononitrate ER [Imdur] 30 mg PO DAILY #30 tab.er.24h 09/07/19 Rx Nitroglycerin Sl Tabs [Nitrostat] 0.4 mg SUBLINGUAL Q5M PRN #25 tab 09/07/19 Rx Sennosides-Docusate Sodium 2 each PO DAILY tab 09/07/19 Rx [Senokot-S] Allergies Allergy/AdvReac Type Severity Reaction Status Date / Time No Known Allergies Allergy Verified 09/05/19 15:58 Physical Exam Vitals: Vital Signs Temp Pulse Pulse Resp BP BP Pulse Ox 09/06/19 04:00 97.9 F 61 16 117/61 97 09/05/19 23:49 98.3 F 75 16 146/70 99 09/05/19 22:08 98.1 F 65 16 129/76 98 09/05/19 19:18 98.2 F 72 18 139/79 98 09/05/19 17:13 98.4 F 63 17 129/90 98 09/05/19 14:58 98.0 F 65 20 135/74 93 L Intake and Output 09/05/19 09/06/19 09/06/19 22:59 06:59 14:59 Intake Total 150 Balance 150 Intake: Oral 150 Other: Voiding Method Toilet # Voids 1 3 Weight 88.904 kg 88.9 kg Gen: This is an 83-year-old male. Patient is in bed and appears to be comfortable and in no acute distress. HEENT: Head is atraumatic, normocephalic. Pupils equal, round. Sclerae is anicteric. NECK: Supple. No JVD. No lymphadenopathy. No thyromegaly. LUNGS: Clear to auscultation. No wheezes or rhonchi. No intercostal retractions. HEART: Irregular rate and rhythm. No murmur. ABDOMEN: Soft. Bowel sounds are present. No masses. No tenderness. EXTREMITIES: No pedal edema. No calf tenderness. Dorsalis pedis +2 bilaterally. NEUROLOGICAL: Patient is awake, alert and oriented x3. Cranial nerves 2 through 12 are grossly intact. Results CBC & Chem 7: 09/05/19 15:30 09/05/19 15:30 Labs: Abnormal Lab Results - Last 24 Hours (Table) 09/05/19 09/05/19 09/05/19 Range/Units 15:30 15:30 15:30 RBC 4.09 L (4.30-5.90) m/uL Hgb 12.5 L (13.0-17.5) gm/dL Hct 37.5 L (39.0-53.0) % Sodium 135 L (137-145) mmol/L BUN 21 H (9-20) mg/dL Glucose 151 H (74-99) mg/dL POC Glucose (mg/dL) (75-99) mg/dL Troponin I 0.132 H* (0.000-0.034) ng/mL HDL Cholesterol (40-60) mg/dL 09/05/19 09/06/19 09/06/19 Range/Units 22:01 04:42 04:42 RBC (4.30-5.90) m/uL Hgb (13.0-17.5) gm/dL Hct (39.0-53.0) % Sodium (137-145) mmol/L BUN (9-20) mg/dL Glucose (74-99) mg/dL POC Glucose (mg/dL) (75-99) mg/dL Troponin I 0.202 H* 0.154 H* (0.000-0.034) ng/mL HDL Cholesterol 64 H (40-60) mg/dL 09/06/19 Range/Units 06:14 RBC (4.30-5.90) m/uL Hgb (13.0-17.5) gm/dL Hct (39.0-53.0) % Sodium (137-145) mmol/L BUN (9-20) mg/dL Glucose (74-99) mg/dL POC Glucose (mg/dL) 131 H (75-99) mg/dL Troponin I (0.000-0.034) ng/mL HDL Cholesterol (40-60) mg/dL Thrombosis Risk Factor Assmnt - DVT/VTE Prophylaxis DVT/VTE Prophylaxis: Pharmacologic Prophylaxis ordered - Choose All That Apply Any of the Below Risk Factors Present?: Yes Each Factor Represents 1 point: Obesity (BMI >25) Each Risk Factor Represents 3 Points: Age 75 years or older Thrombosis Risk Factor Assessment Total Risk Factor Score: 4 Thrombosis Risk Factor Assessment Level: Moderate Risk Assessment and Plan Plan: 1. Chest pain. Cardiology consult. Continue Lipitor 80 mg daily, Plavix 75 mg daily, Imdur 30 mg daily, lisinopril 5 mg daily. Echocardiogram ordered. 2. Chronic persistent atrial fibrillation. Continue eliquis. 3. Hypertension. Continue lisinopril 5 mg daily. 4. Hyperlipidemia. Continue Lipitor. 5. Diabetes mellitus type 2. Hold metformin if patient needs heart catheterization. Continue NovoLog scale before meals and at bedtime. 6. Bladder cancer with recent tumor resection in July 2019. 7. History of prostate cancer. 8. Suspicious brain tumor, worked up at [facility]. 9. DVT prophylaxis. Eliquis. 10. GI prophylaxis. Pepcid. Patient placed as an observation status. Discharge plan: Return home Impression and plan of care have been directed as dictated by the signing physician. Marjorie Kraus nurse practitioner acting as scribe for signing physician.
[2019-09-06 17:08] LABS: Glucose,Whole Blood 169 mg/dL (75-99)
[2019-09-06 20:33] LABS: Glucose,Whole Blood 113 mg/dL (75-99)
[2019-09-06] MEDS: BICALUTAMIDE 50 MG TAB PO SCH (20:49)
[2019-09-06] MEDS: metFORMIN 500 MG TAB PO SCH (20:49)
[2019-09-06] MEDS: ATORVASTATIN 80 MG TAB PO SCH (20:49)
[2019-09-07 05:48] LABS: Glucose,Whole Blood 122 mg/dL (75-99)
[2019-09-07] MEDS: INSULIN ASPART (NovoLOG) 100 UNIT/ML VIAL SQ SCH ×2 (06:00→12:26)
[2019-09-07 08:04] VITALS: RESP 16; TEMP 97.7
[2019-09-07] MEDS ORDERED: FAMOTIDINE 20 MG TAB PO SCH (09:00)
[2019-09-07] MEDS ORDERED: ASPIRIN 81 MG PO SCH (09:00)
[2019-09-07] MEDS: APIXABAN 5 MG TAB PO SCH (09:19)
[2019-09-07] MEDS: CLOPIDOGREL 75 MG TAB PO SCH (09:19)
[2019-09-07] MEDS: ISOSORBIDE MONONITRATE ER 30 MG TAB.ER.24H PO SCH (09:19)
[2019-09-07] MEDS: LISINOPRIL 5 MG TAB PO SCH (09:19)
[2019-09-07 11:27] VITALS: BP 127/75; PULSE 75
[2019-09-07] MEDS ORDERED: SENNOSIDES-DOCUSATE SODIUM 1 EACH TAB PO SCH (11:30)
[2019-09-07 11:56] LABS: Glucose,Whole Blood 153 mg/dL (75-99)
[2019-09-07 14:15] LABS: Hemoglobin A1C 7.1 % (4.0-6.0)
--- NOTE | 2019-09-07 14:23 | CONS ---
CONSULTATION This patient was admitted with the symptoms suggestive of angina. Patient recently underwent cardiac catheterization. No significant coronary artery disease was detected. In view of that, the maximum medical therapy is recommended. Patient is feeling well. He is not having any symptoms of angina. He has been ambulatory in the hallway. Patient is started on Imdur 30 mg daily as well as Ranexa 500 mg b.i.d. and patient will be discharged home. Patient is started on Imdur 30 mg daily, nitroglycerin p.r.n., and patient will follow up as an outpatient. MMODL / IJN: [id number] /
--- NOTE | 2019-09-07 15:00 | P.DS ---
Providers Date of admission: 09/05/19 16:42 Expected date of discharge: 09/07/19 Attending physician: James Richards MD Consults: 09/05/19 16:42 Consult Physician Urgent Consulting Provider: Jessica Voss Consult Reason/Comments: cp Do you want consulting provider notified?: Yes Primary care physician: [facility] Course: This is an 83-year-old male patient of Dr. Dykes and Dr. HEATH Voss with past medical history of persistent atrial fibrillation on eliquis, prostate cancer, bladder cancer, patient underwent tumor removal in the bladder in July of this year, diabetes mellitus type II, hypertension, hyperlipidemia, patient also had suspicion of a possible brain tumor. Patient complains of chest pain in the middle of his chest up into his back that was a pressure type pain. He denies any radiation to his arm or neck. He denies any dizziness. This started about he was watching TV. He denies cough, shortness of breath. He denies any abdominal pain, no gastric reflux. He denies any weakness or speech difficulties. He denies any lower extremity edema. He does state that he has been constipated lately. Patient had a recent hospitalization [facility] at [facility] which time he presented with chest pain, status post heart catheterization which apparently was negative for coronary artery disease. Patient came into [facility] emergency center for evaluation. Blood pressure 134/74, heart rate in the 60s, pulse ox 93% on room air, afebrile. WBC 8, hemoglobin 12.5, platelet count 255. D-dimer 0.5, sodium 135, potassium 4.2, BUN 21, creatinine 1.1. Troponin 0.154, 0.202, 0.15. Magnesium 1.7. BNP level 1720. Chest x-ray showed no acute cardio pulmonary findings. Patient was placed on the cardiac stepdown unit and consult with cardiology requested. Echocardiogram has been ordered. 09/06: Patient denies any complaints today. He denies any chest pain. He has been afebrile, heart rate 78, blood pressure 125/71, pulse ox 98% on room air. Hemoglobin A1c 7.1. Triglycerides 43, cholesterol 117, LDL 44, HDL 64. Echocardiogram reveals EF of 50-55%, trace to mild aortic regurgitation, mild mitral regurgitation, mild tricuspid regurgitation, no pulmonary hypertension. Patient will be discharged home today in stable condition. Discharge diagnoses: 1. Chest pain, acute coronary syndrome ruled out by cardiology 2. Chronic persistent atrial fibrillation. 3. Hypertension. 4. Hyperlipidemia. 5. Diabetes mellitus type 2. 6. Bladder cancer with recent tumor resection in July 2019. 7. History of prostate cancer. 8. Suspicious brain tumor, worked up at [facility]. Discharge plan: Return home Impression and plan of care have been directed as dictated by the signing physician. Marjorie Kraus nurse practitioner acting as scribe for signing physician. Patient Condition at Discharge: Good Plan - Discharge Summary Discharge Rx Participant: No New Discharge Prescriptions: New Isosorbide Mononitrate ER [Imdur] 30 mg PO DAILY #30 tab.er.24h Nitroglycerin Sl Tabs [Nitrostat] 0.4 mg SUBLINGUAL Q5M PRN #25 tab PRN Reason: Chest Pain Famotidine [Pepcid] 20 mg PO DAILY tab Clopidogrel [Plavix] 75 mg PO DAILY #30 tab Sennosides-Docusate Sodium [Senokot-S] 2 each PO DAILY tab Continue metFORMIN HCL [Glucophage] 500 mg PO HS Vitamin B Complex 1 cap PO DAILY Lisinopril [Prinivil] 5 mg PO DAILY Cholecalciferol [Vitamin D3 (25 Mcg = 1000 Iu)] 1,000 unit PO DAILY Bicalutamide 50 mg PO HS Atorvastatin [Lipitor] 80 mg PO HS Apixaban [Eliquis] 5 mg PO BID Discharge Medication List Apixaban [Eliquis] 5 mg PO BID 09/05/19 [History] Atorvastatin [Lipitor] 80 mg PO HS 09/05/19 [History] Bicalutamide 50 mg PO HS 09/05/19 [History] Cholecalciferol [Vitamin D3 (25 Mcg = 1000 Iu)] 1,000 unit PO DAILY 09/05/19 [History] Lisinopril [Prinivil] 5 mg PO DAILY 09/05/19 [History] Vitamin B Complex 1 cap PO DAILY 09/05/19 [History] metFORMIN HCL [Glucophage] 500 mg PO HS 09/05/19 [History] Clopidogrel [Plavix] 75 mg PO DAILY #30 tab 09/07/19 [Rx] Famotidine [Pepcid] 20 mg PO DAILY tab 09/07/19 [Rx] Isosorbide Mononitrate ER [Imdur] 30 mg PO DAILY #30 tab.er.24h 09/07/19 [Rx] Nitroglycerin Sl Tabs [Nitrostat] 0.4 mg SUBLINGUAL Q5M PRN #25 tab 09/07/19 [Rx] Sennosides-Docusate Sodium [Senokot-S] 2 each PO DAILY tab 09/07/19 [Rx] Follow up Appointment(s)/Referral(s): Jessica Voss MD [STAFF PHYSICIAN] - 09/14/19 2:45 pm Roscoe Dykes MD [Primary Care Provider] - 1 Week Patient Instructions/Handouts: Chest Pain (DC), Heart Healthy Diet (DC) Discharge Disposition: HOME SELF-CARE
== END 2019-09-07 14:45 | disposition home or self-care (01) ==
LOC: EC 14:51 → 3SCARD 16:42
PROVIDERS: ADMIT Internal Medicine; ATTEND Internal Medicine
DX: I48.19 Other persistent atrial fibrillation (principal); I08.3 Combined rheumatic disorders of mitral, aortic and tricuspid valves; R07.89 Other chest pain; E11.9 Type 2 diabetes mellitus without complications; I10 Essential (primary) hypertension; E78.5 Hyperlipidemia, unspecified; E66.9 Obesity, unspecified; Z68.24 Body mass index [BMI] 24.0-24.9, adult; K59.00 Constipation, unspecified; Z83.3 Family history of diabetes mellitus; Z98.890 Other specified postprocedural states; Z79.01 Long term (current) use of anticoagulants; Z79.84 Long term (current) use of oral hypoglycemic drugs; Z79.02 Long term (current) use of antithrombotics/antiplatelets; Z79.51 Long term (current) use of inhaled steroids; Z79.899 Other long term (current) drug therapy; Z80.52 Family history of malignant neoplasm of bladder; Z80.42 Family history of malignant neoplasm of prostate; Z80.8 Family history of malignant neoplasm of other organs or systems
CPT/HCPCS: 99291; 93005 ×2; 36415; 93306; 85379; 83880; 80061; 80053; 82550; 82553; 83735; 84484 ×2; 85025; 85610; 85730; 83036; 71046; G0378 ×3

== ENCOUNTER → 2020-05-02 | Outpatient (CLI) | payer MEDICARE, BC ==
--- NOTE | 2020-05-02 12:48 | CT ---
EXAMINATION TYPE: CT abdomen pelvis w con DATE OF EXAM: 05/02/2020 COMPARISON: None HISTORY: Prostate cancer CT DLP: 1471 mGycm CONTRAST: CT scan of the abdomen and pelvis is performed with Oral Contrast and with IV Contrast, patient injec jb with 100 ml mL of Isovue 300. FINDINGS: LUNG BASES-: No visible nodule. No infiltrate. LIVER/GB: No calcified gallstones. Nonspecific hypoattenuating lesion within the left hepatic lobe at the level of the falciform ligament measures 2.8 cm in greatest dimension with Hounsfield unit of 34. This could reflect a complex cyst. Biliary tree is of normal caliber. PANCREAS: No inflammation. No distinct mass. SPLEEN: No splenic enlargement. No lesion seen. ADRENALS: No nodule. No thickening. KIDNEYS/BLADDER: No hydronephrosis. No nephrolithiasis. Parapelvic and renal cortical cystic lesion s noted. No distinct solid renal lesion identified. Diffuse urinary bladder wall thickening may refle ct underlying cystitis. Correlate clinically. BOWEL: Normal appendix. Normal bowel caliber. No inflammation. Sigmoid diverticulosis without diver ticulitis. GENITAL ORGANS: No gross abnormality. LYMPH NODES: No greater than 1cm abdominal or pelvic lymph nodes are appreciated. AORTA: No significant abnormality. OSSEOUS STRUCTURES: No significant abnormality is seen. OTHER: No significant additional abnormality is seen. IMPRESSION: 1. Diffuse urinary bladder wall thickening may reflect underlying cystitis. Correlate clinically. 2. Parapelvic and renal cortical cysts 3. Nonspecific hepatic lesion may reflect a complex cyst. This could be further evaluated with ultras ound.
--- NOTE | 2020-05-02 15:02 | NM ---
EXAMINATION TYPE: NM bone scan whole body DATE OF EXAM: 05/02/2020 COMPARISON: Correlation CT same day HISTORY: 84-year-old male history of bladder and prostate cancer. Patient with history of left should er injury one year ago. TECHNIQUE: Delayed whole-body scanning was performed following the injection of 23.5 mCi Tc 99m MDP. Images acquired 3.25 hours post injection. FINDINGS: No suspicious tracer activity to suggest osseous metastatic disease. Some degenerative tracer activit y at the shoulders, sternoclavicular joints, sternomanubrial joint, mid lumbar spine, and left greate r than right knee. Also, at the left wrist. IMPRESSION: Scattered degenerative tracer activity. No scintigraphic evidence for osseous metastatic disease.
== END | disposition home or self-care (01) ==
LOC: RADNMMAIN 10:30
PROVIDERS: ATTEND Urology
DX: N32.89 Other specified disorders of bladder (principal); N28.1 Cyst of kidney, acquired; K76.89 Other specified diseases of liver; C61 Malignant neoplasm of prostate; R93.7 Abnormal findings on diagnostic imaging of other parts of musculoskeletal system
CPT/HCPCS: 82565; 84520; 74177; 36415; 78306; A9503; Q9967

== ENCOUNTER → 2020-10-18 | Outpatient (CLI) | payer MEDICARE, BC ==
[2020-10-19 10:38] LABS: Protein C (Activity) 84 % (71-138)
[2020-10-19 11:34] LABS: Protein S Antigen 94 % (50 - 140)
[2020-10-19 11:57] LABS: Protein C Antigen 96 % (72-160)
[2020-10-19 14:09] LABS: APTT 54 Sec(s) (<43); APTT 1:1 Mix 42 Sec(s) (<43); DRVVT 1:1 Mix 44 Sec(s) (<44); Dilute Russell Viper Venom 62 Sec(s) (<44)
== END | disposition home or self-care (01) ==
LOC: LABWHC1 16:05
PROVIDERS: ATTEND Psychiatry & Neurology Neurology
DX: Z86.73 Personal history of transient ischemic attack (TIA), and cerebral infarction without residual deficits (principal)
CPT/HCPCS: 36415; 81241; 81291; 85302; 85303; 85305; 85306; 85613; 85730; 86147

== ENCOUNTER → 2021-03-05 | Outpatient (CLI) | payer MEDICARE, BC ==
--- NOTE | 2021-03-06 09:11 | CT ---
EXAMINATION TYPE: CT abdomen pelvis w con DATE OF EXAM: 03/05/2021 COMPARISON: CT abdomen and pelvis May 02, 2020 HISTORY: f/u prostate ca CT DLP: 848.3 mGycm, Automated Exposure Control for Dose Reduction was Utilized. CONTRAST: CT scan of the abdomen and pelvis is performed with oral and with IV Contrast, patient injected with 80cc mL of Isovue 300. FINDINGS: LUNG BASES: Prominent dependent atelectasis. Mild bibasilar linear scarring and/or atelectasis redemo nstrated. Moderate right atrial dilatation redemonstrated on background mild cardiomegaly. Stable 3.1 cm low dense lesion central left hepatic lobe along falciform ligament is nonspecific as Hounsfield units average near 38. No significant change from prior. LIVER/GB: No significant abnormality is appreciated. PANCREAS: No significant abnormality is seen. SPLEEN: No significant abnormality is seen. ADRENALS: No significant abnormality is seen. KIDNEYS: Symmetric cortical medullary uptake and excretion without hydronephrosis seen bilaterally. P rominent central parapelvic cyst redemonstrated bilaterally. Mild to moderate eccentric wall thickeni ng in the anterior aspect of the bladder on current study is significantly improved from prior. BOWEL: Oral contrast does not reach glottic level making evaluation of bowel is suboptimal. There is no suspicious small or large bowel dilatation. Diverticula in the distal transverse colon through the sigmoid colon are redemonstrated. No CT evidence for acute diverticulitis. PROSTATE/SEMINAL VESICLES: Prostate gland upper limits of normal in size not significant changed from prior. LYMPH NODES: Left pelvic iliac chain adenopathy reference 1.6 x 1.4 cm lymph node axial image 64. New right lead nuclear medicine technologist al iliac chain adenopathy for reference 1.9 x 1.5 cm lymph node on image 71 and adjacent abnormal lym ph node just anterior and inferior to this measuring 1.4 x 1.3 cm axial image 73. More prominent but subcentimeter left periaortic lymph nodes distal abdominal aortic level axial image 45 noted. OSSEOUS STRUCTURES: Moderate disc space narrowing L2-L3 level with vacuum disc phenomenon. Moderate m ultilevel spurring in the spine. Posterior disc herniation L1-L2 level effaces the anterior thecal sa c. Metallic hardware from left hip arthroplasty causes streak artifact limiting evaluation of pelvic structures similar to prior. Stable nonspecific sclerotic lesion left iliac bone next image 54 favor benign bone island. Severe degenerative changes right hip joint redemonstrated. OTHER: Moderate calcified plaque of the aorta extends into branch vessels IMPRESSION: Of most concern is new pelvic or iliac chain adenopathy bilaterally worrisome for prostat e cancer recurrence or progression. Clinical correlation and correlation with PSA values is advised. Mild to moderate eccentric anterior wall thickening in the bladder is nonspecific but improved from p rior, correlate clinically.
== END | disposition home or self-care (01) ==
LOC: RADCTMAIN 14:01
PROVIDERS: ATTEND Urology
DX: C61 Malignant neoplasm of prostate (principal); R59.0 Localized enlarged lymph nodes
CPT/HCPCS: 82565; 84520; 74177; 36415; Q9967

== ENCOUNTER → 2023-07-16 | Outpatient (CLI) | payer MEDICARE, BC ==
[2023-07-16 15:25] LABS: African American GFR (CKD) 73 (>60 ml/min/1.73 sqM); Blood Urea Nitrogen 31 mg/dL (9-20); Non-African American GFR(CKD) 63 (>60 ml/min/1.73 sqM)
--- NOTE | 2023-07-16 16:19 | CT ---
EXAMINATION TYPE: CT soft tissue neck w con DATE OF EXAM: 07/16/2023 COMPARISON: None HISTORY: Squamous cell carcinoma of right cheek CT DLP: 377.6 mGycm CONTRAST: Patient injected with 80 mL of Isovue 300. TECHNIQUE: Axial images at 3 mm thick sections. Reconstructed images in the coronal plane and sagitt al plane are reviewed. FINDINGS: Limited CT sections are obtained the lung apices. The lung apices appear clear. CT neck: The torus tubarius and fossa of Rosenmuller are normal. Lamination Inspector spaces are normal. Ther e is an air-fluid level within the left maxillary sinus. Correlate for acute maxillary sinusitis. Muc osal thickening is within the inferior left maxillary sinus. The patient's right cheek squamous cell carcinoma is not identified on the CT examination. Parotid glands appear normal and symmetrical. Submandibular glands, are normal. Parapharyngeal spac es are normal. No suspicious adenopathy is evident. The hypopharynx appears within normal limits. Vocal cord level appear symmetrical. Thyroid as visualized is normal. Osseous structures are normal. IMPRESSION: 1. No suspicious acute changes CT soft tissue neck.. Reported right cheek squamous cell carcinoma not identified by CT. No suspicious metastatic lesions identified.
== END | disposition home or self-care (01) ==
LOC: RADCTMAIN 13:42
PROVIDERS: ATTEND Radiology Radiation Oncology
DX: C44.320 Squamous cell carcinoma of skin of unspecified parts of face (principal)
CPT/HCPCS: 82565; 84520; 70491; 36415; Q9967